=== PATIENT | male | born 2000 | race Caucasian/White ===

== ENCOUNTER 2020-11-15 12:42 | Emergency (ER) | payer OTHER ==
[~2020-11-15] VITALS: Ht 182.9 cm; Wt 70.3 kg
[2020-11-15] MEDS ORDERED: BACITRAYCIN PLU28 GM TP (13:42)
[2020-11-15] MEDS ORDERED: CEPHALEXIN500 MG PO (13:42)
[2020-11-15 14:15] VITALS: BP 132/87
== END 2020-11-15 14:17 | disposition home or self-care (01) ==
LOC: M.ERS 12:42
DX: S61.021A Laceration with foreign body of right thumb without damage to nail, initial encounter (principal); L08.89 Other specified local infections of the skin and subcutaneous tissue; W45.8XXA Other foreign body or object entering through skin, initial encounter; Y93.89 Activity, other specified; Y92.89 Other specified places as the place of occurrence of the external cause; Y99.8 Other external cause status